=== PATIENT | female | born 1975 | race Caucasian/White ===

== ENCOUNTER → 2016-12-12 | Outpatient (CLI) | payer BC ==
[2016-12-12 13:27] LABS: BILIRUBIN,URINE NEGATIVE (NEG); CLARITY,URINE CLEAR (CLEAR); COLOR,URINE YELLOW; GLUCOSE, URINE (UA) NEGATIVE (NEG); NITRATE,URINE NEGATIVE (NEG); OCCULT BLOOD,URINE NEGATIVE (NEG); PH,URINE 5.5 (5.0-8.5); PROTEIN,URINE NEGATIVE (NEG)
[2016-12-12 13:31] LABS: URINE SAMPLE TYPE VOIDED SPECIMEN
[2016-12-12 13:32] LABS: SQUAMOUS EPITHELIAL CELL,UR FEW; WBC,URINE 0-1
[2016-12-12 13:44] LABS: BUN/CREATININE RATIO 12.5 (6-20); CALCIUM 8.9 mg/dL (8.7-10.7); SERUM ALBUMIN 4.4 g/dL (3.5-4.8)
== END ==
LOC: MOB LAB 11:50
PROVIDERS: ATTEND Nurse Practitioner Family
DX: G43.109 Migraine with aura, not intractable, without status migrainosus (principal); Z86.39 Personal history of other endocrine, nutritional and metabolic disease; R60.0 Localized edema; R10.11 Right upper quadrant pain; R31.9 Hematuria, unspecified; Z72.0 Tobacco use
CPT/HCPCS: 36415; 80053; 81001; 84439; 84443; 84445; 84481; 86376; 86800